=== PATIENT | female | born 1955 | race Caucasian/White ===

== ENCOUNTER 2023-10-20 08:55 | Outpatient (RCR) | payer MEDICARE, SELFPAY | END 2024-01-20 14:56 | disposition home or self-care (01) | LOC: HO.WCC 08:55 | PROVIDERS: PCP Pediatrics; Visit Provider Surgery | DX: I87.311 Chronic venous hypertension (idiopathic) with ulcer of right lower extremity (principal); L97.812 Non-pressure chronic ulcer of other part of right lower leg with fat layer exposed; F17.210 Nicotine dependence, cigarettes, uncomplicated; Z79.899 Other long term (current) drug therapy | CPT/HCPCS: 11042; 99212 ==

== ENCOUNTER 2025-01-30 14:45 | Outpatient (RCR) | payer MEDICARE, SELFPAY | END 2025-03-08 16:17 | disposition home or self-care (01) | LOC: HO.WCC 14:45 | PROVIDERS: PCP Pediatrics; Visit Provider Surgery Surgical Oncology | DX: L98.491 Non-pressure chronic ulcer of skin of other sites limited to breakdown of skin (principal); N18.9 Chronic kidney disease, unspecified; F17.210 Nicotine dependence, cigarettes, uncomplicated; W54.0XXA Bitten by dog, initial encounter; Y93.9 Activity, unspecified; Y92.9 Unspecified place or not applicable; Y99.9 Unspecified external cause status | CPT/HCPCS: 97597; 99212; 99213 ==